=== PATIENT | female | born 1990 ===

== ENCOUNTER 2018-01-28 19:31 | Emergency (ER) | payer OTHER ==
[2018-01-28 19:34] VITALS: BP 113/78
--- NOTE | 2018-01-28 19:37 | ED GENERAL ADULT ---
History of Present Illness General Chief Complaint: General Adult Stated Complaint: MED REFILL Source: patient Exam Limitations: no limitations Vital Signs & Intake/Output Vital Signs & Intake/Output Vital Signs Date Time Temp Pulse Resp B/P B/P Pulse O2 O2 Flow FiO2 Mean Ox Delivery Rate 01/28 1934 97.2 79 17 113/78 96 Room Air Allergies Coded Allergies: Sulfa (Sulfonamide Antibiotics) (Intermediate, HIVES 01/28/18) Reconcile Medications Trazodone HCl 100 MG TABLET 1 TAB PO QPM SLEEP Triage Nurses Notes Reviewed? yes Onset: Abrupt Duration: day(s): Timing: recent history Injury Environment: home No Modifying Factors: none HPI: 27-year-old female comes into the emergency room for medication refill on her trazodone. Patient reports that she was not able to get a hold of her psychiatrist. Currently her psychiatrist is in some type transition into a new practice of some sort. She's been on this medication for over 2 years. She takes for sleep. Denies any other associated symptoms. No SI HI. Past History Travel History Traveled to [place] past 21 day No Medical History Any Pertinent Medical History? none Surgical History Surgical History: non-contributory Family History Hx Contributory? No Review of Systems Review of Systems Constitutional: Reports: no symptoms. EENTM: Reports: no symptoms. Respiratory: Reports: no symptoms. Cardiovascular: Reports: no symptoms. GI: Reports: no symptoms. Genitourinary: Reports: no symptoms. Musculoskeletal: Reports: no symptoms. Skin: Reports: no symptoms. Neurological/Psychological: Reports: see HPI. Hematologic/Endocrine: Reports: no symptoms. Immunologic/Allergic: Reports: no symptoms. All Other Systems: Reviewed and Negative Physical Exam Physical Exam General Appearance: well developed/nourished, no apparent distress, alert Head: atraumatic Eyes: Bilateral: normal appearance. Ears, Nose, Throat: normal ENT inspection Neck: normal inspection Respiratory: no respiratory distress Back: normal inspection Extremities: normal inspection Neurologic/Psych: awake, alert Skin: intact, normal color Core Measures ACS in differential dx? No CVA/TIA Diagnosis: No Sepsis Present: No Sepsis Focused Exam Completed? No Progress Differential Diagnoses I considered the following diagnoses in my evaluation of the patient: Insomnia, depression Plan of Care: 01/28/2018 8:24:26 PM Patient clinically looks well. In no apparent distress. Nontoxic-appearing. Follow-up with psychiatrist. Initial ED EKG: none Departure Departure Disposition: HOME OR SELF CARE Condition: Stable Clinical Impression Primary Impression: Medication refill Referrals: Andrea SKAGGS,Andrea (PCP/Family) Additional Instructions: Take trazodone as prescribed. Follow-up with your psychiatrist. Please go over all results of today's visit with your primary care doctor. Contact your primary care doctor to let them know you were here in the emergency room. There may be nonspecific findings which may not be related to your visit today here in the emergency room but may require further evaluation and chronic monitoring by your primary care doctor. If you had a laceration today the chance of foreign body always remains. You should follow-up with your primary care doctor for recheck in 3-5 days for a wound check. If you had an x-ray done there is a chance that a fracture could have been missed on initial read and you should follow-up with your primary care doctor for repeat x-rays if symptoms persist. If your blood pressure was elevated here in the emergency room please have rechecked by [facility] primary care doctor within the next 48. If you were prescribed a narcotic here in the emergency room or any type of controlled substances you're not allowed to drive while taking this medication or operate any type of heavy machinery. Narcotics can make you feel lightheaded dizziness nausea and can cause constipation. You may need to picker machine operator a stool softener. Thank you for choosing [facility] emergency room. Please return to the emergency room immediately if you have any other concerns worsening of symptoms. Departure Forms: Customer Survey General Discharge Information Prescriptions: Current Visit Scripts Trazodone HCl 1 TAB PO QPM #30 TAB Critical Care Note Critical Care Note Critical Care Time: non-applicable
[2018-01-28] MEDS ORDERED: TRAZODONE HCL100 M1 PO (19:44)
== END 2018-01-28 19:47 ==
LOC: ERH 19:31
DX: Z76.0 Encounter for issue of repeat prescription (principal)
CPT/HCPCS: 99281